=== PATIENT | male | born 1970 | race Hispanic/Latino ===

== ENCOUNTER 2020-05-11 19:00 | Observation (INO) | payer OTHER ==
[~2020-05-11] VITALS: Ht 165.1 cm; Wt 78.0 kg
--- NOTE | 2020-05-11 19:10 | NUR ---
PT AMBUALTORY TO ROOM # 14 FOR BEDSIDE TRIAGE.
--- NOTE | 2020-05-11 19:40 | NUR ---
IV INTIATED WITH LAB SPECIMENS OBTAINED. PT TOLERATED WELL. ADVISED OF WAIT TIME FOR RESULTS. VERBALIZED UNDERSTANDING. DENIES ANY NEEDS. CALL LIGHT WITHIN REACH. SPOUSE BEDSIDE.
[2020-05-11 20:09] LABS: HEMATOCRIT 45.7 % (39.0-50.0); HEMOGLOBIN 15.3 g/dl (14.0-18.0); IMMATURE GRANULOCYTES 0.3 % (0.0-5.0); MEAN CELL VOLUME 81.8 fL CALC (80.0-100.0); MEAN CORPUSCULAR HGB 27.4 pG CALC (26.0-32.0); MEAN CORPUSCULAR HGB CONC 33.5 g/dL CAL (32.0-36.0); NEUT# 6.36 thou/uL (1.82-7.42); RED BLOOD COUNT 5.59 mill/uL (4.70-6.10)
[2020-05-11 20:15] LABS: ALBUMIN 4.9 g/dL (3.2-5.0); ALKALINE PHOSPHATASE 92 u/l (38-126); AMYLASE 45 u/l (30-110); ANION GAP 13 (6-22 (CALC)); BILIRUBIN, TOTAL 0.9 mg/dL (0.0-1.4); BUN 18 mg/dL (9-20); BUN/CREATININE RATIO 25 (12-20 (CALC)); CARBON DIOXIDE 25 mmol/l (22-30); CHLORIDE 99 mmol/l (95-108); CREATININE 0.7 mg/dL (0.7-1.3); GFR > 60 ML/MIN (>=60 (CALC)); GFR FOR AFR.AMER. > 60 ML/MIN (>=60 (CALC)); LIPASE 41 u/l (23-300); POTASSIUM 3.8 mmol/l (3.5-5.1); SGOT/AST 29 u/l (17-59); SODIUM 133 mmol/l (137-146); TOTAL PROTEIN 8.6 g/dL (6.3-8.2)
--- NOTE | 2020-05-11 20:25 | NUR ---
SWABS COLLECTED PER ORDER. TOLERATED WELL. PT MEDICATED FOR PAIN PER ORDER. PT RATES PAIN LEVEL 10/10 WITH SOME ASSOCIATED NAUSEA. DR QUINTERO NOTIFIED OF PTS ELVATED BLOOD PRESSURE. ORDER RECEIVED FOR LABATELOL.
[2020-05-11 20:27] LABS: MYOGLOBIN 34 ng/mL (0 - 121)
[2020-05-11 20:39] LABS: URINE BILIRUBIN - DIPSTICK NEGATIVE (NEGATIVE); URINE BLOOD DIPSTICK NEGATIVE (NEGATIVE); URINE COLOR YELLOW; URINE GLUCOSE - DIPSTICK NEGATIVE (NEGATIVE); URINE KETONE NEGATIVE (NEGATIVE); URINE LEUK ESTERASE NEGATIVE (NEGATIVE); URINE NITRITE - DIPSTICK NEGATIVE (Negative); URINE PROTEIN - DIPSTICK 30 mg/dL (NEG-TRACE); URINE SPECIFIC GRAVITY >=1.030; URINE UROBILINOGEN - DIPSTICK 0.2 E.U./dL (0.2)
[2020-05-11 20:42] LABS: URINE RBC 0-2 RBC/hpf (0-5); URINE WBC 0-2 WBC/hpf (0-5)
--- NOTE | 2020-05-11 20:50 | NUR ---
PT MEDICATED WITH LABETAOLOL 10 MG IV INITIALLY PER DR QUINTERO ORDER PT TOLERATED MEDICAITON ADMINISTRATION WELL. CARDIAC MONTIOR SHOWING SR @ 77. PLAN OF CARE DISCUSSED WITH PT. VERBALIZED UNDERSTANDING. DENEIS ANY NEEDS. BEDSIDE.
--- NOTE | 2020-05-11 21:20 | NUR ---
PT TO RADIOLOGY VIA WC IN STABLE CONDITION.
--- NOTE | 2020-05-11 21:40 | NUR ---
PT RETURNS FROM RADIOLOGY IN STABLE CONDITION. ADVISED OF CONT WAIT TIME FOR RESULTS. VERBALZIED UNDERSTANDING. DENIES ANY NEEDS. CALL LIGHT WITHIN REACH.
--- NOTE | 2020-05-11 22:10 | NUR ---
DR QUINTERO BEDSIDE SPEAKING WITH PT REGARDING RESULTS AND PLAN FOR ADMISSION.
--- NOTE | 2020-05-11 22:40 | NUR ---
REPORT CALLED TO COLIN SOLIZ ON MEDSURGE.
--- NOTE | 2020-05-11 22:50 | NUR ---
REPORT RECEIVED FROM ED NURSE. I ASKED IF WE CAN HAVE ORDERS FOR PRN PAIN MEDICATION, ALSO CONFIRMED THE NPO DIET, BUT ASKED IF THEY WANT HIM PREPPED FOR COLONOSCOPY TONIGHT, SHE STATED NO, JUST NPO TONIGHT, NO PREP, BUT THAT SHE WOULD RECONSULT PHYSICIAN TO CONFIRM ORDERS. PT HAS NOT ARRIVED TO MED SURG FLOOR YET, PT IS STILL IN ED AT THIS TIME. ED NURSE DOES REPORT THAT SHE WILL ASK FOR PRN ORDERS ALSO FOR ELEVATED BP SINCE PT HAS BEEN ELEVATED SINCE ARRIVING TO HOSPITAL. REPORTS THAT PT IS 146/90'S AT THIS TIME AFTER RECEIING LABETALOL.
--- NOTE | 2020-05-11 22:50 | NUR ---
Admission Note Report Given to: HEYDI RN Transported by: X Wheelchair Stretcher Transported with: X Nurse Transporter X Patent IV O2 X Steward Dishwasher Location: ICU X MS2 PT TRANSPORTED VIA WC TO MS [address] TELE [address]ACE IN STABLE CONMDITION. BELONGINGS GIVEN TO PT. HEYDI SHAW BEDSIDE WITH PT.
[2020-05-11 22:56] VITALS: BP 157/90
--- NOTE | 2020-05-11 23:00 | NUR ---
PT ARRIVED TO THE MED SURG UNIT ACCOMPANIED BY ED NURSE. PT APPEARS TO BE IN STABLE CONDITION. NO S/O DISTRESS. PT SELF AMBULATED TO THE BED. V/S ASSESSED AT THIS TIME AND PT ORIENTED TO ROOM, CALL SYSTEM, LIGHTS, BED AND TV. PT HAS VERY LIMITED [place] LANGUAGE SKILLS, WILL HAVE A RADIOLOGIC TECHNOLOGY PROGRAM DIRECTOR COME ASSIST WITH PT.
--- NOTE | 2020-05-11 23:13 | NUR ---
PATHOLOGY COLLECTOR IN TO TRANSLATE FOR PT AND EXPLAIN ROOM, CALL SYSTEM, POC, LIGHTS, TV AND BED FOR PT. HE DENIES ANY QUESTIONS OR DISTRESSES AT THIS TIME. LIGHTS TURNED OFF, TV OFF, PT IS IN BED WITH CALL LIGHT AT SIDE. PT HAS BEEN ADVISED OF BEING NPO, VERBALIZED UNDERSTANDING.
[2020-05-12 04:00] VITALS: BP 132/92
--- NOTE | 2020-05-12 06:11 | NUR ---
PT AWAKE, LAB IS IN WITH PT. NO S/O DISTRESS NOTED AT THIS TIME.
[2020-05-12 06:21] LABS: HEMATOCRIT 43.1 % (39.0-50.0); HEMOGLOBIN 14.6 g/dl (14.0-18.0); IMMATURE GRANULOCYTES 0.1 % (0.0-5.0); MEAN CELL VOLUME 81.3 fL CALC (80.0-100.0); MEAN CORPUSCULAR HGB 27.5 pG CALC (26.0-32.0); MEAN CORPUSCULAR HGB CONC 33.9 g/dL CAL (32.0-36.0); NEUT# 5.01 thou/uL (1.82-7.42); RED BLOOD COUNT 5.3 mill/uL (4.70-6.10); RED CELL DISTRI WIDTH 14.1 % (11.5-15.5)
[2020-05-12 06:34] LABS: ALBUMIN 4.2 g/dL (3.2-5.0); ALKALINE PHOSPHATASE 81 u/l (38-126); ANION GAP 13 (6-22 (CALC)); BILIRUBIN, TOTAL 0.8 mg/dL (0.0-1.4); BUN 16 mg/dL (9-20); BUN/CREATININE RATIO 23 (12-20 (CALC)); CARBON DIOXIDE 24 mmol/l (22-30); CHLORIDE 102 mmol/l (95-108); CREATININE 0.7 mg/dL (0.7-1.3); GFR > 60 ML/MIN (>=60 (CALC)); GFR FOR AFR.AMER. > 60 ML/MIN (>=60 (CALC)); POTASSIUM 3.9 mmol/l (3.5-5.1); SGOT/AST 23 u/l (17-59); SODIUM 135 mmol/l (137-146); TOTAL PROTEIN 7.4 g/dL (6.3-8.2)
--- NOTE | 2020-05-12 08:00 | NUR ---
PT RESTING IN THE BED, HIS AZERBAIJANI IS LIMITED. PT AXOX3, C/O ABD PAIN. MED PER ORDER. REPOSITIOEND FOR COMOFRT, SIDE RAILS UP CALL LIGHT IN REACH BED LOCKED IN LOW POSITION, WILL CONTINUE TO MONIOTR THE PATIENT ALL SAFTY MEASURES IN PLACE. EDUCATED PT ON NPO STATUS.
--- NOTE | 2020-05-12 09:00 | NUR ---
PT RESTING COMFORTABLE NO DISTRESS NOTED AT THIS TIME.
[2020-05-12 09:59] VITALS: BP 152/82
[2020-05-12 11:12] VITALS: BP 174/99
--- NOTE | 2020-05-12 11:50 | NUR ---
B/P ELEVATED MED PER ORDER. WILL CONTINUE TO MONITOR THE PATIENT.
--- NOTE | 2020-05-12 12:18 | NUR ---
PT GIVEN GASTROGRAPHIN AND INSTRUCTED ON THE TEST.
--- NOTE | 2020-05-12 16:54 | NUR ---
EDUCATED PT IN [place] HE HAS TO DRINK THE GO LYTE FOR COLONOSCOPY IN THE AM. PATIENT STATED IN [place] HE UNDERSTOOD. C/O PAIN MED PER ORDER. WILL CONTINUE TO MONITOR THE PATIENT.
[2020-05-12 19:00] VITALS: BP 175/99
[2020-05-12 23:59] VITALS: BP 174/01; BP 174/101
[2020-05-13] VITALS (7 sets, daily range): BP systolic 128–176; BP diastolic 69–106
--- NOTE | 2020-05-13 02:25 | NUR ---
PATIENT IS ALERT AND ORIENTED. ABLE TO MAKE NEEDS KNOWN. C/O MILD ABDOMINAL PAIN TO LEFT UPPER QUADRANT. RESPIRATIONS EASY ON ROOM AIR. ON TELEMETRY HOWEVER TELEMETRY HAS BEEN WORKING INTERMITENTLY. NEW BOX TO OBTAIN FROM ED. IVF INFUSING AT 125. COMPLETED NULYTELY BEFORE MN. STOOL STILL DARK BROWN IN COLOR. PATIENT HAD ELEVATED B/P, NOTIFIED, NEW ORDER RECEIVED, HYDRALAZINE 10 MG IV GIVEN. BED IN LOW POSITION. CALL LIGHT WITHIN REACH.
[2020-05-13 05:54] LABS: HEMATOCRIT 44.2 % (39.0-50.0); HEMOGLOBIN 14.7 g/dl (14.0-18.0); IMMATURE GRANULOCYTES 0.3 % (0.0-5.0); MEAN CELL VOLUME 81.7 fL CALC (80.0-100.0); MEAN CORPUSCULAR HGB 27.2 pG CALC (26.0-32.0); MEAN CORPUSCULAR HGB CONC 33.3 g/dL CAL (32.0-36.0); NEUT# 6.7 thou/uL (1.82-7.42); RED BLOOD COUNT 5.41 mill/uL (4.70-6.10); RED CELL DISTRI WIDTH 14.2 % (11.5-15.5)
[2020-05-13 05:55] LABS: ALKALINE PHOSPHATASE 80 u/l (38-126); ANION GAP 13 (6-22 (CALC)); BILIRUBIN, TOTAL 0.8 mg/dL (0.0-1.4); BUN 15 mg/dL (9-20); BUN/CREATININE RATIO 23 (12-20 (CALC)); CARBON DIOXIDE 21 mmol/l (22-30); CHLORIDE 104 mmol/l (95-108); CREATININE 0.6 mg/dL (0.7-1.3); GFR > 60 ML/MIN (>=60 (CALC)); GFR FOR AFR.AMER. > 60 ML/MIN (>=60 (CALC)); POTASSIUM 3.7 mmol/l (3.5-5.1); SGOT/AST 24 u/l (17-59); SODIUM 133 mmol/l (137-146); TOTAL PROTEIN 7.1 g/dL (6.3-8.2)
--- NOTE | 2020-05-13 09:25 | NUR ---
PT RESTING IN THE BED HE IS ALERT, NOTED HE IS A TONG[place] SPEEKING. NPO FOR COLONOSCOPY. IV INFUSING. PT IS ABLE TO AMB ON HIS OWN TO THE BATHROOM. DENIES PAIN AT THIS TIME. PROVIDER AT THE BEDSIDE EXPLAINING IN [place] THE TEST FOR TODAY. REPOSITIONED FOR COMFORT, SIDE RAILS UP CALL LIGHT IN REACH BED LOCKED IN LOW POSITION, WILL CONTINUE TO MONIOTR THE PATIENT.
--- NOTE | 2020-05-13 09:58 | NUR ---
B/P ELEVATED 176/106 MED PER ORDER WILL CONTINUE TO MONIOTR THE PATIENT.
--- NOTE | 2020-05-13 10:32 | NUR ---
B/P 158/88
--- NOTE | 2020-05-13 11:07 | NUR ---
PT TAKEN TO ENDO.
--- NOTE | 2020-05-13 14:00 | NUR ---
PT ARRVIED FROM ENDO VIA STREACHER. AXOX3, DENIES PAIN , IV INFUSING. PT ABLE TO WALK FROM THE STREACHER TO THE BED WITH MIN ASST. VS 138/72 84 18 97%. REPOSITIONED FOR COMOFRT, SIDE RAILS UP CALL LIGHT IN REACH BED LOCKED IN LOW POSITION. ALL SAFTY MEASURES IN PLACE. WILL CONTINUE TO MONIOTR THE PATIENT.
--- NOTE | 2020-05-13 16:32 | NUR ---
PT RESTING COMOFRTABLE, IV INFUSING. TELE IN PLACE AND WORKING. NO DISRESS NOTED AT THIS TIME. WILL CONTINUE TO MONIOTR THE PATIENT.
[2020-05-14 03:12] VITALS: BP 124/73
[2020-05-14 05:33] LABS: HEMOGLOBIN 14.2 g/dl (14.0-18.0); MEAN CELL VOLUME 82.1 fL CALC (80.0-100.0); MEAN CORPUSCULAR HGB 27.1 pG CALC (26.0-32.0); RED BLOOD COUNT 5.24 mill/uL (4.70-6.10); RED CELL DISTRI WIDTH 14.4 % (11.5-15.5)
[2020-05-14 06:02] LABS: ANION GAP 13 (6-22 (CALC)); BUN 14 mg/dL (9-20); BUN/CREATININE RATIO 18 (12-20 (CALC)); CARBON DIOXIDE 19 mmol/l (22-30); CHLORIDE 106 mmol/l (95-108); CREATININE 0.8 mg/dL (0.7-1.3); GFR > 60 ML/MIN (>=60 (CALC)); GFR FOR AFR.AMER. > 60 ML/MIN (>=60 (CALC)); MAGNESIUM 1.9 mg/dL (1.6-2.3); POTASSIUM 3.4 mmol/l (3.5-5.1); SODIUM 134 mmol/l (137-146)
--- NOTE | 2020-05-14 06:33 | NUR ---
PATIENT IS ALERT AND ORIENTED X4. ABLE TO MAKE NEEDS KNOWN. [place] FIRST LANGUAGE. RESPIRATIONS EASY ON ROOM AIR. C/O ABDOMINAL BLOATING AND DISCOMFORT. PRN MORPHINE GIVEN WITH POSITIVE EFFECT. CONTINUES ON IV FLUIDS. CURRENTLY RESTING WITH EYES CLOSED. BED IN LOW POSITION. CALL LIGHT WITHIN REACH.
[2020-05-14 07:15] VITALS: BP 135/81
--- NOTE | 2020-05-14 07:15 | NUR ---
PATIENT LAYING IN BED ALERT AND ORIENTED AT THIS TIME. CALL LIGHT AND PERSONAL ITEMS WITHIN REACH. SIDERAILS ARE UP X 2. PATIENT DENEIS ANY PAIN, BOWEL SOUNDS ARE PRESENT IN ALL FOUR QUADRANTS AND PAITNET PASSING GAS AT THIS TIME. RN ASSESSEMENT DONE SEE INTERVENTIONS.
[2020-05-14 10:25] VITALS: BP 134/83
[2020-05-14] MEDS ORDERED: AMOX/K CLAV875 M1 PO (10:45)
[2020-05-14] MEDS ORDERED: SENNA-TABS8.6 MG PO (10:45)
[2020-05-14] MEDS ORDERED: MIRALAX17 GM/SCOO PO (10:46)
[2020-05-14] MEDS ORDERED: AMLODIPINE BESYL5 MG PO (10:50)
--- NOTE | 2020-05-14 11:43 | NUR ---
PATIENT D/C AT THIS TIME VERBALIZES UNDERSTANDING OF D/C INSTRUCTIONS AT THIS TIME.
--- NOTE | 2020-05-14 12:51 | NUR ---
Discharge instructions given. Patient verbalizes understanding of same. Discharged in stable condition via Wheelchair to Home with *Other. All belongings sent with pt.
== END 2020-05-14 12:53 | disposition home or self-care (01) | DRG 392 ==
LOC: ED 19:00 → ED-I 22:04 → ED 22:18 → MS2 22:19
PROVIDERS: Emergency Medicine; Nurse Practitioner; ADMIT Internal Medicine; ATTEND Internal Medicine
PROC: 0DBM8ZX Excision of Descending Colon, Via Natural or Artificial Opening Endoscopic, Diagnostic (ICD-10-PCS; principal; 2020-05-13)
PROC: 3E0H8KZ Introduction of Other Diagnostic Substance into Lower GI, Via Natural or Artificial Opening Endoscopic (ICD-10-PCS; 2020-05-13)
DX: K57.32 Diverticulitis of large intestine without perforation or abscess without bleeding (principal); I10 Essential (primary) hypertension; Z87.891 Personal history of nicotine dependence; Z20.822 Contact with and (suspected) exposure to COVID-19
CPT/HCPCS: G0378; Q9967

== ENCOUNTER 2023-03-23 15:59 | Inpatient (IN) | payer OTHER ==
[2023-03-23] VITALS (18 sets, daily range): BP systolic 152–187; BP diastolic 102–117
[~2023-03-23] VITALS: Ht 165.1 cm; Wt 79.4 kg
[~2023-03-23 15:59] MED LIST: AMLODIPINE BESYL5 MG PO; AMOX/K CLAV875 M1 PO; MIRALAX17 GM/SCOO PO; SENNA-TABS8.6 MG PO
--- NOTE | 2023-03-23 16:40 | NUR ---
PT TO ROOM3
[2023-03-23 16:46] LABS: BASO% 0.2 % (0-3); EOS% 0.1 % (0-8); HEMOGLOBIN 16.9 g/dl (14.0-18.0); IMMATURE GRANULOCYTES 0.5 % (0.0-5.0); LYMPH% 30.9 % (15-41); MEAN CELL VOLUME 84.8 fL CALC (80.0-100.0); MEAN CORPUSCULAR HGB 29.2 pG CALC (26.0-32.0); MEAN CORPUSCULAR HGB CONC 34.5 g/dL CAL (32.0-36.0); NEUT# 5.34 thou/uL (1.82-7.42); NEUT% 60.3 % (42-76); RED BLOOD COUNT 5.78 mill/uL (4.70-6.10); RED CELL DISTRI WIDTH 11.7 % (11.5-15.5)
[2023-03-23 17:00] LABS: ALKALINE PHOSPHATASE 70 u/l (38-126); ANION GAP 16 (6-22 (CALC)); BILIRUBIN, TOTAL 0.8 mg/dL (0.2-1.3); BUN 15 mg/dL (9-20); BUN/CREATININE RATIO 18 (12-20 (CALC)); CARBON DIOXIDE 31 mmol/l (22-30); CHLORIDE 93 mmol/l (95-108); CREATININE 0.8 mg/dL (0.7-1.3); GFR FOR AFR.AMER. > 60 ML/MIN (>=60 (CALC)); GFR OTHER RACES > 60 ML/MIN (>=60 (CALC)); POTASSIUM 4.4 mmol/l (3.5-5.1); SGOT/AST 39 u/l (17-59); SODIUM 135 mmol/l (137-146); TOTAL PROTEIN 8.5 g/dL (6.3-8.2)
[2023-03-23 17:01] LABS: ALBUMIN 5.3 g/dL (3.2-5.0)
--- NOTE | 2023-03-23 18:11 | NUR ---
PT RETURN FROM CT
--- NOTE | 2023-03-23 19:15 | NUR ---
PT RESTING IN BED. PT UPDATDED ON CONTINUED WAIT TIME. PT STATES UNDERSTANDING AND DENIES ANY OTHER NEEDS AT THIS TIME.
[2023-03-23 19:51] LABS: URINE BILIRUBIN - DIPSTICK Negative (NEGATIVE); URINE BLOOD DIPSTICK Negative (NEGATIVE); URINE GLUCOSE - DIPSTICK Negative (NEGATIVE); URINE KETONE 15 mg/dL (NEGATIVE); URINE LEUK ESTERASE Negative (NEGATIVE); URINE NITRITE - DIPSTICK Negative (Negative); URINE PROTEIN - DIPSTICK Negative (NEG-TRACE); URINE SPECIFIC GRAVITY <=1.005; URINE UROBILINOGEN - DIPSTICK 0.2 E.U./dL (0.2)
[2023-03-23 19:52] LABS: URINE COLOR Yellow
--- NOTE | 2023-03-23 20:23 | NUR ---
SILK SCREEN PROCESSOR IN ROOM WITH PATIENT DISCUSSING PLAN OF CARE
[2023-03-23] MEDS ORDERED: METFORMIN HCL1000 MG PO (20:41)
[2023-03-23] MEDS ORDERED: ACTOS15 MG PO (20:41)
[2023-03-23] MEDS ORDERED: LISINOPRIL20 M1 PO (20:41)
[2023-03-23] MEDS ORDERED: ZOFRAN4 MG/TAB PO (20:42)
[2023-03-23] MEDS ORDERED: HYDROCODONE/ACE1 T12 PO (20:43)
[2023-03-23] MEDS ORDERED: CIPROFLOXACN500 MG PO (20:44)
[2023-03-23] MEDS ORDERED: METRONIDAZOLE500 MG PO (20:45)
[2023-03-23] MEDS ORDERED: DICYCLOMINE HCL20 MG PO (20:45)
[2023-03-23] MEDS ORDERED: PHENERGAN25 MG RE (20:45)
--- NOTE | 2023-03-23 20:45 | NUR ---
MD I MADE AWARE OF PTS ELEVATED BP. THIS NURSE ASKS FOR MEDIACTION PRIOR TO BRING HIM UPSTAIRS.
--- NOTE | 2023-03-23 20:52 | NUR ---
REPORT CALLED AND GIVEN TO ABDULAZIZ ON [facility].
--- NOTE | 2023-03-23 21:09 | NUR ---
PT MEDICATED PER EMAR FOR ELEVATED BP.
--- NOTE | 2023-03-23 21:30 | NUR ---
PT TAKEN UP STAIRS TO MS VIA WHEELCHAIR.
--- NOTE | 2023-03-23 21:50 | NUR ---
PT ARRIVED FROM ER BP WAS 180/110 LABETALOL WAS GIVEN VIA IV BY ER NURSE.
--- NOTE | 2023-03-23 22:00 | NUR ---
RECEIVED PT FROM ER VIA WC WITH STAFF, IV SITE IS FREE FROM REDNESS OR EDEMA, BP WAS 180/110. LABETAL WAS BEING GIVEN AT THIS TIME. BY ER NURSE. HR IS REG,PULSES ARE STRONG X4,ABD IS DISTENDED AND FIRM, BREATH SOUNDS ARE CLEAR,BILATERALLY. CONTINUE TO OSBERVE AND MONITOR.
--- NOTE | 2023-03-23 23:00 | NUR ---
BP WAS RECHECKED PT HAS BEEN RESTING
[2023-03-24] VITALS (14 sets, daily range): BP systolic 125–157; BP diastolic 69–103
--- NOTE | 2023-03-24 01:15 | NUR ---
PT C/O ABD PAIN EXPLAINED TO BRANDYN SHAW INTERPRETED "FELT LIKE A POP IN MY ABD" PAIN MEDICATION GIVEN AND HAD HER EXPLAIN RE: ENEMA. STARTED THE ENEMA. WANTS TO WALK TO THE BATHROOM,
--- NOTE | 2023-03-24 01:39 | NUR ---
PT IS STANDING IN PLACE AND NOT READY TO EXPEL ANY FLUID
--- NOTE | 2023-03-24 02:10 | NUR ---
SMALL AMOUNT OF STOOL P[T FEELS BLOATED. NO MORE PAIN AT THIS TIME. REINSERTED FLUID AGAIN TO THE RECTUM, PT IS PACING BACK AND FORTH TO GET IT TO COME DOWN
--- NOTE | 2023-03-24 02:50 | NUR ---
pt got rid of some more stool,.
--- NOTE | 2023-03-24 04:00 | NUR ---
PT IS VERY TIRED, ABLE TO HAVE SOME BM AFTER ENEMA
--- NOTE | 2023-03-24 05:25 | NUR ---
pt recieved another 250cc of fluid in rectum, able to expel some formed brown stool and water
--- NOTE | 2023-03-24 06:19 | NUR ---
BP WAS CHECKED READING HIGH, 157/103 RECHECEKD PT IS NOW 143/93 RESTING IN BED
[2023-03-24 07:09] LABS: BASO% 0.4 % (0-3); IMMATURE GRANULOCYTES 0.3 % (0.0-5.0); LYMPH% 23.8 % (15-41); MEAN CELL VOLUME 86.2 fL CALC (80.0-100.0); MEAN CORPUSCULAR HGB CONC 34.8 g/dL CAL (32.0-36.0); MONO% 8.6 % (2-13); NEUT# 5.28 thou/uL (1.82-7.42); NEUT% 66.9 % (42-76); RED BLOOD COUNT 4.5 mill/uL (4.70-6.10); RED CELL DISTRI WIDTH 11.8 % (11.5-15.5)
[2023-03-24 07:10] LABS: HEMATOCRIT 38.8 % (39.0-50.0); HEMOGLOBIN 13.5 g/dl (14.0-18.0)
[2023-03-24 07:37] LABS: ANION GAP 12 (6-22 (CALC)); BUN 15 mg/dL (9-20); BUN/CREATININE RATIO 20 (12-20 (CALC)); CARBON DIOXIDE 26 mmol/l (22-30); CHLORIDE 98 mmol/l (95-108); CREATININE 0.8 mg/dL (0.7-1.3); GFR FOR AFR.AMER. > 60 ML/MIN (>=60 (CALC)); GFR OTHER RACES > 60 ML/MIN (>=60 (CALC)); POTASSIUM 4.4 mmol/l (3.5-5.1); SODIUM 132 mmol/l (137-146)
--- NOTE | 2023-03-24 08:00 | NUR ---
RECEIVED REPORT FROM NIGHTSHIFT NURSE. PT NOTED LAYING IN BED SUPINE, AT BEDSIDE. PT IS SWEDISH SPEAKING ONLY, LANGUAGE LINE USED TO TRANSLATE ID NUMBER [id number]. PT DENIES ANY PAIN AT THIS TIME. EDUCATED ON DIET, PLAN OF CARE, AND MED SCHEDULE. CALL LIGHT WITHIN REACH AND SAFETY PRECAUTIONS IN PLACE.
--- NOTE | 2023-03-24 12:31 | NUR ---
PT DOWN TO OR. REPORT GIVEN TO OR NURSES, PHARMACY NOTIFIED TO BRING ANTIBIOTIC PER EMAR TO OR. FAMILY WAITING IN .
--- NOTE | 2023-03-24 16:30 | NUR ---
PT BROUGHT UP FROM OR VIA BED. REPORT RECEIVED FROM OR NURSE STELLA. PT IS VERY DROWSY AT THIS TIME. NASAL CANNULA IN PLACE ON 2L, NG TUBE NOTED TO RT NARE, PLACED ON LOW INTERMITTEN SUCTION PER PHYSCIANS ORDER. IBARRA CATHETER NOTED WITH YELLOW URINE OUTPUT. ASSESSED PT SURGICAL INCISION TO MIDLINE, UNOBSERVABLE AT THIS TIME DUE TO DSG, DSG CDI. COLOSTOMY NOTED ON LEFT LOWER QUADRANT WITH MINOR BLOODY OUTPUT NOTED. PT FAMILY AT BEDSIDE. SCD'S APPLIED. EDUCATED PT AND FAMILY ON PLAN OF CARE, MED SCHEDULE, POST OP CARE, AND DIET. CALL LIGHT WITHIN REACH AND SAFETY PRECAUTIONS IN PLACE.
--- NOTE | 2023-03-24 20:15 | NUR ---
PT RESTING IN BED, AT BEDSIDE, NO SIGNS OF DISTRESS NOTED, RESP EVEN AND UNLABORED. PT ALERT AND ORIENTED X3, NO EDEMA. PT HAS NGT TO L NARE SUCTION TO LIS. NOTED GREEN DRAINAGE IN CANISTER. PT HAS 02 2L NC, ABD DISTENDED MIDLINE DRESSING TO ABD CDI. COLOSTOMY TO LLQ, NOTED BLOODY DRAINAGE AND AIR IN BAG, BS ACTIVE X4, IBARRA PATENT STAT LOCK IN PLACE, DRAINING TO GRAVITY. SCD'S IN PLACE. DISCUSSED POC WITH PT AND , ENCOURAGED AMBULATION. PT AGREES. INSTRUCTED PT TO SPLINT ABD, PT ASSISTED TO SITTING POSTION ON SIDE OF BED. TOLERATED WELL. DENIES ANY DIZZYNESS. PT THEN ASSISTED TO AMBULATE AROUND THE ROOM, PT TOLERATED WELL. DENIES ANY COMPLAINTS, ASSISTED BACK TO BED. CALL LIGHT IN REACH, POC ONGOING.
--- NOTE | 2023-03-25 00:02 | NUR ---
PT RESTING IN BED WITH EYES CLOSED, AT BEDSIDE, PT EASILY AROUSED TO VERBAL STIMULI. DISCUSSED MEDICATIONS DUE, PT AGREES. PT MEDICATED PER MAR. DENIES ANY NEEDS AT THIS TIME. CALL LIGHT IN REACH, POC ONGOING.
--- NOTE | 2023-03-25 02:07 | NUR ---
PT CALLED TABULAR TYPIST TO ROOM, NOTED NGT FOUND DISLODGED ON FLOOR. PT DENIES ANY DISCOMFORT OR PAIN, STATES HE WAS SLEEPING AND IT ACCIDENTLY PULLED OUT. NO SIGNS OF DISTRESS NOTED, CALL MADE TO PROVIDED, NO FURTHER INSTRUCTIONS PROVIDED. COLOSTOMY BAG EMPTIED OF 150CC BROWN LOOSE STOOL. CALL LIGHT IN REACH, POC ONGOING.
--- NOTE | 2023-03-25 04:03 | NUR ---
PT CALLED FOR ASSISTANCE, REQUESTING TO GET OUT OF BED, NO SIGNS OF DISTRESS NOTED, RESP EVEN AND UNLABORED. PT TOLERATED AMBULATING IN ROOM WELL. COLOSTOMY BAG EMPTIED OF 250 LOOSE STOOL. ASSISTED PT BACK TO BED, CALL LIGHT IN REACH, AT BEDSIDE, POC ONGOING.
[2023-03-25 06:30] LABS: BASO% 0.2 % (0-3); EOS% 0.2 % (0-8); HEMOGLOBIN 13.3 g/dl (14.0-18.0); IMMATURE GRANULOCYTES 0.2 % (0.0-5.0); LYMPH% 14.6 % (15-41); MEAN CELL VOLUME 86.1 fL CALC (80.0-100.0); MEAN CORPUSCULAR HGB 29.4 pG CALC (26.0-32.0); MEAN CORPUSCULAR HGB CONC 34.1 g/dL CAL (32.0-36.0); MONO% 5.6 % (2-13); NEUT# 7.59 thou/uL (1.82-7.42); NEUT% 79.2 % (42-76); RED BLOOD COUNT 4.53 mill/uL (4.70-6.10); RED CELL DISTRI WIDTH 12.2 % (11.5-15.5)
[2023-03-25 06:53] LABS: ALKALINE PHOSPHATASE 44 u/l (38-126); ANION GAP 9 (6-22 (CALC)); BILIRUBIN, TOTAL 0.7 mg/dL (0.2-1.3); BUN 13 mg/dL (9-20); BUN/CREATININE RATIO 18 (12-20 (CALC)); CARBON DIOXIDE 24 mmol/l (22-30); CHLORIDE 104 mmol/l (95-108); CREATININE 0.7 mg/dL (0.7-1.3); GFR FOR AFR.AMER. > 60 ML/MIN (>=60 (CALC)); GFR OTHER RACES > 60 ML/MIN (>=60 (CALC)); POTASSIUM 3.7 mmol/l (3.5-5.1); SGOT/AST 26 u/l (17-59); SODIUM 132 mmol/l (137-146)
[2023-03-25 07:01] LABS: ALBUMIN 2.9 g/dL (3.2-5.0); TOTAL PROTEIN 5.1 g/dL (6.3-8.2)
[2023-03-25 07:42] VITALS: BP 116/68
--- NOTE | 2023-03-25 08:00 | NUR ---
RESTING IN BED, ALERT. DENIES PAIN CURRENTLY. ABD CONTINUES TO BE DISTENDED. COLOSTOMY PRODUCING LIQUID BROWN STOOL. FAMILY AT BEDSIDE. NO CONCERNS EXPRESSED BY PATIENT OR FAMILY AT CURRENT TIME.
[2023-03-25 11:05] VITALS: BP 130/83
--- NOTE | 2023-03-25 12:00 | NUR ---
AMBULATING IN AVILA WITH SPOUSE. TOLERATING WELL. MEDICATED FOR C/O PAIN AT SURGICAL SITE.
[2023-03-25 15:22] VITALS: BP 138/86
--- NOTE | 2023-03-25 16:38 | NUR ---
C/O NO RELIEF FROM PERCOCET GIVEN FOR PAIN, AND "HEARTBURN". MEDICATED WITH PRN ZOFRAN AND DILAUDID. FAMILY AT BEDSIDE.
[2023-03-25 19:08] VITALS: BP 124/82
--- NOTE | 2023-03-25 20:15 | NUR ---
RECEIVED BEDSIDE REPORT FROM DAYSHIFT NURSE. PT IS IN BED SITTING UP WITH FAMILY AT BEDSIDE. PT MADE AWARE OF CHANGE OF SHIFT AND OF STAFF. PLAN OF CARE HAS BEEN STABLISHED FOR THE NIGHT. SAFETY PRECAUTIONS IN PLACE AND CALL LIGHT WITHIN REACH.
[2023-03-26] VITALS (7 sets, daily range): BP systolic 117–154; BP diastolic 73–101
--- NOTE | 2023-03-26 | NUR ---
PT IS IN BED SLEEPING NO SIGNS OF PAIN OR DISTRESS AT THIS TIME.SAFETY PRECAUTIONS IN PLACE AND CALL LIGHT WITHIN REACH.
--- NOTE | 2023-03-26 04:15 | NUR ---
PT IS IN BED AT THIS TIME. FEELING NAUSEUS. MEDICATION HAS BEEN ADMINISTERED. SAFETY PRECAUTIONS IN PLACE AND CALL LIGHT WITHIN REACH.
[2023-03-26 06:54] LABS: BASO% 0.2 % (0-3); EOS% 0.3 % (0-8); HEMATOCRIT 39.5 % (39.0-50.0); HEMOGLOBIN 13.4 g/dl (14.0-18.0); IMMATURE GRANULOCYTES 0.3 % (0.0-5.0); LYMPH% 8.4 % (15-41); MEAN CELL VOLUME 87.2 fL CALC (80.0-100.0); MEAN CORPUSCULAR HGB 29.6 pG CALC (26.0-32.0); MEAN CORPUSCULAR HGB CONC 33.9 g/dL CAL (32.0-36.0); NEUT# 12.69 thou/uL (1.82-7.42); NEUT% 83.8 % (42-76); RED BLOOD COUNT 4.53 mill/uL (4.70-6.10); RED CELL DISTRI WIDTH 12.3 % (11.5-15.5)
[2023-03-26 07:22] LABS: ANION GAP 12 (6-22 (CALC)); BUN 13 mg/dL (9-20); BUN/CREATININE RATIO 16 (12-20 (CALC)); CARBON DIOXIDE 25 mmol/l (22-30); CHLORIDE 103 mmol/l (95-108); CREATININE 0.8 mg/dL (0.7-1.3); GFR FOR AFR.AMER. > 60 ML/MIN (>=60 (CALC)); GFR OTHER RACES > 60 ML/MIN (>=60 (CALC)); POTASSIUM 3.4 mmol/l (3.5-5.1); SODIUM 136 mmol/l (137-146)
--- NOTE | 2023-03-26 08:00 | NUR ---
PT IN BED WITH HOB UP. PT HAS C/O ABD PAIN AND NAUSEA/ VOMITING. DR. CHAVEZ HAS BEEN NOTIFIED BY PHOTOGRAPHIC LITHOGRAPHER NURSE AND ORDERS RECEIVED. PT LUNGS CLEAR. ABD IS DISTNEDED AND FIRM, COLOSTOMY BAG INTACT WITH BROWN STOOL NOTED. PT IV SITE TO LFA CLEAN AND INTACT AND D5 W/ K INFUSING AT 80 ML/HR. IBARRA CAHT INTACT DRAINING CLOUDY, YELLOW BLOOD TINGED URINE WITH SEDIMENT IN BAG. PT IS AT BEDSIDE. PT HAS CALL LIGHT WITHIN REACH AND SAFETY MEASURES IN PLACE AT THIS TIME. PT HAS CALL LIGHT WITHIN REACH AND SAFETY MEASURES IN PLACE AT THIS TIME.
--- NOTE | 2023-03-26 08:30 | NUR ---
ORDER FOR NG PLACEMENT RECEIVED BY SUPERINTENDENT DISTRIBUTION NURSE AND ORDER ENTERED. NG TUB PLACED WITH 1800 ML OF DARK , GREEN GI CONTENT OUT IMMEDIATELY PRIOR TO ADDING SUCTION. PT PLACED IN SUCTION PER PROTOCOL AND CONTINUES TO DRAIN DARK GREEN CONTENT. PT TOLERATED PROCDURE WELL. ORDER FOR X RAY ENTERED TO CHECK FOR PLACEMENT. PT IS NPO AT THIS TIME AND ORDER ENTERED. PT HAS CALL [facility] REACH AND SAFETY MEASURES IN PLACE.
--- NOTE | 2023-03-26 12:00 | NUR ---
PT IN BED RESTING WITH HOB UP, AT [facility]. PT STATES HE HAS NO C/O PAIN OR NAUSEA AT THIS TIME. NG TUBE CONTINUES TO DRAIN LARGE AMOUNTS OF DARK GREEN GI CONTENT. PT HAS CALL LIGHT WITHIN REACH AND SAFETY MEASURES IN PLACE AT THIS TIME.
--- NOTE | 2023-03-26 13:20 | NUR ---
S: BAYLEEGEOFFREY TORRES is a 52 M who presents with large bowel obstruction. He has a history of colitis and diverticulitis . All medications in patient's chart were reviewed. O: VS: BP:141/101 mmHg, P:109 bpm, RR:18 bpm, T: 100.5 F W: 74 kg, HT: 65in, Scr: 0.8 mg/dl, CrCl: 102.8 ml/min A: Preliminary blood culture shows no growth after 48 hours incubation. P: Patient is on Zosyn 3.375 gm IV Q6H Vancomycin ordered for pharmacy to dose. Start Vancomycin 1.25 gm IV Q12H. Vancomycin trough is drawn before the 4th dose on 03/28/23 @0100. Vancomycin goal trough is between 10-15 mcg/ml. Pharmacy will follow and or advise on antibiotics use as needed.
--- NOTE | 2023-03-26 21:00 | NUR ---
ASSESSMENT IS COMPLETED. IV SITE IS FREE FROM REDNESS OR EDEMA. HR IS REG,PULSES ARE STRONG X4,ABD IS DISTENDED AND SOFT WITH HYPO BS, NGT IN PLACEC LARGE AMOUNT OF DARK GREEN FLUID, IBARRA DRAINING YELLOW URINE. COLOSTOMY HAS SOME STOOL DARK. DRESSING ON ABD IS CDI. USED THE LANGUAGE LINE ON THE PHONE TO SPEAK WITH PT AND FAMILY VERBALIZED UNDERSTANDING.
[2023-03-26 23:23] LABS: URINE BILIRUBIN - DIPSTICK Negative (NEGATIVE); URINE BLOOD DIPSTICK Moderate (NEGATIVE); URINE GLUCOSE - DIPSTICK Negative (NEGATIVE); URINE KETONE 15 mg/dL (NEGATIVE); URINE NITRITE - DIPSTICK Negative (Negative); URINE PROTEIN - DIPSTICK >=300 mg/dL (NEG-TRACE); URINE UROBILINOGEN - DIPSTICK 0.2 E.U./dL (0.2)
[2023-03-26 23:37] LABS: URINE COLOR Yellow
[2023-03-26 23:38] LABS: URINE LEUK ESTERASE Negative (NEGATIVE)
[2023-03-26 23:39] LABS: URINE BACTERIA MODERATE hpf; URINE EPITHELIAL CELLS FEW EPI/hpf (0-FEW); URINE MUCUS FEW hpf (NONE-FEW); URINE YEAST MODERATE hpf
[2023-03-27] VITALS (11 sets, daily range): BP systolic 122–185; BP diastolic 81–105
--- NOTE | 2023-03-27 | NUR ---
PT IS RESTING IN BED WITH NO DISTRESS NOTED. IV SITE IS FREE FROM REDNESS OR EDMEA. FAMILY WENT HOME.
--- NOTE | 2023-03-27 04:15 | NUR ---
PT IS RESTING NGT IN PLACE. IBARRA DRAINING YELLOW URINE,, COLOSTOMY BAG IS HAVING SOME STOOL. IV SITE IS FREE FROM REDNESS OR EDEMA.
[2023-03-27 07:32] LABS: BASO% 0.2 % (0-3); EOS% 2.1 % (0-8); HEMATOCRIT 35.9 % (39.0-50.0); HEMOGLOBIN 12.5 g/dl (14.0-18.0); IMMATURE GRANULOCYTES 0.3 % (0.0-5.0); LYMPH% 8.8 % (15-41); MEAN CELL VOLUME 87.6 fL CALC (80.0-100.0); MEAN CORPUSCULAR HGB 30.5 pG CALC (26.0-32.0); MEAN CORPUSCULAR HGB CONC 34.8 g/dL CAL (32.0-36.0); MONO% 6.6 % (2-13); NEUT# 11.85 thou/uL (1.82-7.42); RED BLOOD COUNT 4.1 mill/uL (4.70-6.10); RED CELL DISTRI WIDTH 12.3 % (11.5-15.5)
--- NOTE | 2023-03-27 08:00 | NUR ---
PT RESTING IN BED WITH FAMILY MEMBER AT BEDSIDE. ASSESSMENT COMPLETED. NG TUBE IN PLACE PER MD ORDER. DARK BROWN OUTPUT NOTED. IBARRA IN PLACE DRAINING URINE VIA GRAVITY. IV INTACT INFUSING IVF PER EMAR. DRESSING TO MIDLINE CDI. LEFT COLOSTOMY IN PLACE 300CC OUTPUT DARK GREEN COLORED. EDUCATED PT COLOSTOMY AND FOLEUY/ NG TUBE. PT INIDCATED UNDERSTANING. VOICED PAIN 10/10. MEDICATED PER EMAR. BOWEL SOUNDS ACTIVE. ABD DISTENDED/ FIRM. FALL/SAFTEY PRECAUTION IN PLACE. CALL OLIGHT WITHIN REACH
[2023-03-27 08:35] LABS: ALBUMIN 2.9 g/dL (3.2-5.0); BILIRUBIN, TOTAL 0.8 mg/dL (0.2-1.3); POTASSIUM 2.9 mmol/l (3.5-5.1); TOTAL PROTEIN 5.2 g/dL (6.3-8.2)
[2023-03-27 08:37] LABS: CREATININE 2.7 mg/dL (0.7-1.3); MAGNESIUM 2.6 mg/dL (1.6-2.3)
--- NOTE | 2023-03-27 11:43 | NUR ---
called dr nogueira office and gave information on the pt. stated she will let him know.
--- NOTE | 2023-03-27 12:00 | NUR ---
PT NEW IV STARTED FOR ABX AND NS BOLUS PT INDICATED UNDERSTANDING. Fall/saftey precaution in place. call light within reach.
[2023-03-27 15:28] LABS: ALBUMIN 2.7 g/dL (3.2-5.0); BILIRUBIN, TOTAL 0.7 mg/dL (0.2-1.3); CREATININE 3.2 mg/dL (0.7-1.3); POTASSIUM 2.9 mmol/l (3.5-5.1)
--- NOTE | 2023-03-27 16:39 | NUR ---
PT MEDICATED FOR PAIN SEE EMAR STATES DILAUDID HELPS WITH PAIN. IVF INFUSING PER EMAR. NG TUBE IN PLACE SUCTIONING AT LOW INTERMITENT. CONTENTS ARE DARK BROWN/ WATERY STATES NO NEEDS AT THIS TIME. FALL/SAFTETY PRECAUTION IN PLACE CALL LIGHT WITHIN REACH. IBARRA IN PLACE DRAINING URINE VIA GRAVITY. FALL/SAFTEY PRECAUTIN IN PLACE CALL LIGHT WITHIN REACH
--- NOTE | 2023-03-27 20:00 | NUR ---
RECEIVED REPORT FROM NURSE NAJMA, PATIENT IN BED, SIGNIFICANT OTHER IN ROOM, ANGEL HAS NGT ON RT NARE DRAINING DARK GREENISH LIQUID ON LIS, PATIENT IV ON LAC G 20 D5 1/2NS @ 150, PATINET ON TELEMETRY, LUNG SOUNDS CLEAR, MIDLINE INCISION DRESSING CDI, COLOSTOMY EMPTIED LIQUID STOOL, PATIENT IBARRA DRAINING YELLOW COLORED URINE, AND ON SCD, ANGEL PROVIDED WITH INCENTIVE SPIROMETER, INSPIRATORY VOLUME AT 1000, PATIENT C/O PAIN MEDICATED, CALL LIGHT IN REACH.
[2023-03-28] VITALS (8 sets, daily range): BP systolic 142–172; BP diastolic 87–99
--- NOTE | 2023-03-28 00:26 | NUR ---
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
--- NOTE | 2023-03-28 00:43 | NUR ---
PATIENT COLOSTOMY BAB LEAKING, NEW COLOSTOMY BAG APPLIED, PATIENT NOT IN DISTRESS, STATED PAIN RELIEF, IV LABETALOL GIVEN WILL RECHECK BP.
--- NOTE | 2023-03-28 04:49 | NUR ---
LEONORNET RESTING IN BED EYES CLOSED, BREATHING EVEN UNLABORED, PATIENT DENIES PAIN, IBARRA DRAINED AND NGT OUTPUT RECORDED, CALL LIGHT IN REACH.
[2023-03-28 05:19] LABS: BASO% 0.4 % (0-3); EOS% 1.6 % (0-8); HEMATOCRIT 32.9 % (39.0-50.0); HEMOGLOBIN 11.1 g/dl (14.0-18.0); IMMATURE GRANULOCYTES 0.2 % (0.0-5.0); MEAN CORPUSCULAR HGB 29.7 pG CALC (26.0-32.0); MEAN CORPUSCULAR HGB CONC 33.7 g/dL CAL (32.0-36.0); MONO% 6.2 % (2-13); NEUT# 10.17 thou/uL (1.82-7.42); NEUT% 80.6 % (42-76); RED BLOOD COUNT 3.74 mill/uL (4.70-6.10); RED CELL DISTRI WIDTH 12.6 % (11.5-15.5)
[2023-03-28 05:42] LABS: ALBUMIN 2.7 g/dL (3.2-5.0); BILIRUBIN, TOTAL 0.6 mg/dL (0.2-1.3); CREATININE 4.1 mg/dL (0.7-1.3); MAGNESIUM 2.7 mg/dL (1.6-2.3); POTASSIUM 2.8 mmol/l (3.5-5.1)
--- NOTE | 2023-03-28 07:00 | NUR ---
REPORT RECIEVED FROM PATTERN CLERK RN. PT RESTING WITH AT BEDSIDE. NG TUBE IN PLACE AT LOW INTERMITTENT SUCTIONING. IBARRA IN PLACE. PT RESPIRATION SARE EVEN AN DUNLABORED. NO DISTRESS NOTED. IVF INFUSING PER EMAR. FALL/SAFTEY PRECAUTION IN PLACE. CALL LIGHT WITHIN REACH
--- NOTE | 2023-03-28 09:39 | NUR ---
ASSESSMENT COMPLETED. PT RESTING IN BED WITH FAMILY MEMBER AT BEDSIDE. PT A&OX3. IVF INFUSING PER EMAR. EDUCATED PT ON INSENTIVE SPIROMETER AND NG TUBE. PT AND FAMILY MEMBER INDICATED UNDERSTANDING. IBARRA IN PLACE DRAINING URINE VIA GRAVITY. NG TUBE IN PLACE AT LOW INTERMITTENT SUCTIONING. MOUTHCARE PROVIDED NOTIFIED JAVA CORE DEVELOPER FOR ORDERS FOR THROAT IRRITATION. SCDS IN ROOM. PT STATES DOES NOT WANT THEM ON AT THIS TIME. EDUCATED PT ON SCDS. IV PATENT/FLSUHED. 22G RFA AND 20LAC. UPDATED PT IN TODAYS [place] FAMILY PT INDICATED UNDERSTANDING. STATES NO PAIN AT THIS TIME. DARN GREEN OUTPUT 250CC FROM COLOSTOMY BAG. FALL/SAFTEY PRECAUTION IN PLACE. CALL LIGHT WITHIN REACH
--- NOTE | 2023-03-28 11:35 | NUR ---
AT BEDSIDE WITH ALSO MARLON FOR DISCUSSNG PLAN OF CARE
--- NOTE | 2023-03-28 12:04 | NUR ---
PT RESTING IN BED NG TUBE IN PLACE ON INTERMITTENT LOW SUCTIONING. COLOSTOMY BAG IN PLACE WITH DARK GREEN OUTPUT. IVF INFUSING PER EMAR, PT STATES. THROAT SPRAY HELPED WITH THROAT IRRITATION. STATES NO PAIN. FALL/SAFTEY PRECAUTION IN PLACE.CALL LIGHT WITHIN REACH. GLUCOSE: 206 COVERED PER SLIDING SCALE. STATES NO OTHER CONCERNS AT THIS TIME.
--- NOTE | 2023-03-28 13:00 | NUR ---
MEDIA RECONCILIATION SPECIALIST IN ROOM FOR BLOOD DRAW
[2023-03-28 13:30] LABS: CREATININE 4.9 mg/dL (0.7-1.3)
--- NOTE | 2023-03-28 13:55 | NUR ---
MD RM AT BEDSIDE. NG TUBE REMOVED BY PT TOLERATED WELL. INSTRUCTINS FOR ICE CHIPS AND LITTLE WATER ALLOWED. FALL/SAFTEY PRECAUTION IN PLACE.CALL LIGHT WITHIN REACH
--- NOTE | 2023-03-28 16:09 | NUR ---
ER FOUND GOLD PINKY RING PERSONALLY GIVEN TO PT BY ER NURSE EMANUEL SHAW
--- NOTE | 2023-03-28 17:39 | NUR ---
PT RESTING IN BED. [id number] EVEN AND UNLABORED. STATES NO NEEDS AT THIS TIME. FALL/SAFTEY PRECAUTION IN PLACE. CALL LIGHT WITHIN REACH
--- NOTE | 2023-03-28 20:00 | NUR ---
RECEIVED REPORT FROM NURSE NAJMA, PATIENT SEEN WALKING IN HALLWAY WITH , PATIENT IV ON 22 RFA SALINE LOCK PATENT FLUSHES WELL, AND 20 ON LAC G 20 D51/2 NS WITH 20 MEQ POTASSIUM INFUSING WELL,COLOSTOMY BAG DRAINED 100CC OF DARK GREEN FLUID, PATINET IBARRA DRAINING YELLOW COLORED URINE SEDIMENTS NOTED, NOT IN DISTRESS, DRESSING ABDOMEN CDI.
[2023-03-29] VITALS (7 sets, daily range): BP systolic 140–155; BP diastolic 77–86
--- NOTE | 2023-03-29 00:17 | NUR ---
PATINET RESTING IN BED NOT IN DISTRESS, BREATHING EVEM UNLABORED, PATINET DENIES PAIN, CALL LIGHT IN REACH.
--- NOTE | 2023-03-29 03:40 | NUR ---
PATINET RESTING IN BED,DENIES PAIN BREATHING EVEN UNLABORED CALL LIGHT IN REACH.
[2023-03-29 07:10] LABS: BASO% 0.7 % (0-3); EOS% 3.3 % (0-8); HEMATOCRIT 30.9 % (39.0-50.0); HEMOGLOBIN 10.4 g/dl (14.0-18.0); IMMATURE GRANULOCYTES 0.3 % (0.0-5.0); LYMPH% 18.3 % (15-41); MEAN CELL VOLUME 88.8 fL CALC (80.0-100.0); MEAN CORPUSCULAR HGB 29.9 pG CALC (26.0-32.0); MEAN CORPUSCULAR HGB CONC 33.7 g/dL CAL (32.0-36.0); MONO% 7.4 % (2-13); NEUT# 5.27 thou/uL (1.82-7.42); RED BLOOD COUNT 3.48 mill/uL (4.70-6.10); RED CELL DISTRI WIDTH 12.6 % (11.5-15.5)
--- NOTE | 2023-03-29 07:21 | NUR ---
PT SLEEPING AT THIS TIME, RESOIRATIONS ARE EVEN AND UNLABORED.
[2023-03-29 07:47] LABS: ALBUMIN 2.7 g/dL (3.2-5.0); BILIRUBIN, TOTAL 0.5 mg/dL (0.2-1.3); CREATININE 4.4 mg/dL (0.7-1.3); CREATININE 4.5 mg/dL (0.7-1.3); MAGNESIUM 2.7 mg/dL (1.6-2.3); POTASSIUM 3.1 mmol/l (3.5-5.1)
--- NOTE | 2023-03-29 10:21 | NUR ---
PT UP WALKING HALLS.
--- NOTE | 2023-03-29 10:49 | NUR ---
DR CHAVEZ BEDSIDE DISCUSSING PLAN OF CARE WITH PT.
--- NOTE | 2023-03-29 16:40 | NUR ---
pt colostomy bag leaking on bottom, changes dressing and bag. pt tolerated without any coplaints of pain.
--- NOTE | 2023-03-29 21:07 | NUR ---
PT SITTING ON SIDE OF BED, NO SIGNS OF DISTRESS NOTED, RESP EVEN AND UNLABORED. PT ALERT AND ORIENTED X3, DISCUSSED POC, VERBALIZED UNDERSTANDING. MIDLINE DRESSING TO ABD CDI, COLOSTOMY BAG EMPTIED OF 200CC OF BROWN/YELLOW LIQUID STOOL. IBARRA CATHETER PATENT, STAT LOCK IN PLACE, DRAINING TO GRAVITY. ASSESSMENT REVIEW COMPLETED. CALL LIGHT IN REACH, POC ONGOING.
[2023-03-30] VITALS (9 sets, daily range): BP systolic 149–180; BP diastolic 77–92
--- NOTE | 2023-03-30 00:30 | NUR ---
PT RESTING IN BED WITH EYES CLOSED, EASILY AROUSED TO VERBAL STIMULI, NO SIGNS OF DISTRESS NOTED, RESP EVEN AND UNLABORED. PT DENIES ANY NEEDS OR COMPLAINTS AT THIS TIME. CALL LIGHT IN REACH, POC ONGOING.
--- NOTE | 2023-03-30 04:15 | NUR ---
PT RESTING IN BED, NO SIGNS OF DISTRESS NOTED, RESP EVEN AND UNLABORED. COLOSTOMY BAG EMPTIED OF 100CC OF LIQUID STOOL. CALL LIGHT IN REACH,CONTINUE TO MONITOR.
[2023-03-30 08:28] LABS: ALBUMIN 2.7 g/dL (3.2-5.0); CREATININE 3.9 mg/dL (0.7-1.3); MAGNESIUM 2.5 mg/dL (1.6-2.3); POTASSIUM 3.2 mmol/l (3.5-5.1)
--- NOTE | 2023-03-30 09:00 | NUR ---
ASSESSMENT IS COMPLETED: IV SITE IS FREE FROM REDNESS OR EDEMA. HR IS REG,PULSES ARE STRONG X4,ABD IS SOFT WITH ACTIVE BS. COLOSTOMY BAG IS GETTING RID OF DARK STOOL, IBARRA DRAINING YELLOW URINE. TELE MONITOR IN PLACE. IV SITE STOPPED WORKING HAD TO CHANGE IT. NOW IN RFA WITH #20.
--- NOTE | 2023-03-30 10:29 | NUR ---
IBARRA DISCONTINUED CATHETER INTACT. IVF DISCONTINUED AND IV SITE FLUSHED. PT TOLERATED WELL.
--- NOTE | 2023-03-30 12:00 | NUR ---
PT IS RELAXING IN THE CHAIR, NO DISTRESS NOTED. HAS BEEN WALKING AROUND THE ROOM.,
--- NOTE | 2023-03-30 16:00 | NUR ---
PT HAS BEEN AMBULATING IN THE ROOM, IV SITE IS FREE FROM REDNESS OR EDEMA
--- NOTE | 2023-03-30 17:32 | NUR ---
BP WENT BACK DOWN BEFORE MED COULD BE GIVEN , IT IS 149/81 NOW. SPOUSE WAS ASKING IF PT RECEIVED MEDICATION THIS AM,INFORMED YES
--- NOTE | 2023-03-30 20:00 | NUR ---
RECEIEVED BEDSIDE REPORT FROM DAY SHIFT NURSE. PT IS IN BED SITTING UP. WITH FAMILY AT BEDSIDE. MADE PT AWARE OF PLANOF CARE. NO PAIN AT THIS TIME. SAFETY PRECAUTIONS IN N P[LACE AND CALL LIGHT WITHIN REACH.
[2023-03-31 00:06] VITALS: BP 162/92
[2023-03-31 04:57] LABS: ALBUMIN 2.9 g/dL (3.2-5.0); CREATININE 3.3 mg/dL (0.7-1.3); MAGNESIUM 2.2 mg/dL (1.6-2.3); POTASSIUM 3.4 mmol/l (3.5-5.1)
[2023-03-31 05:13] VITALS: BP 149/89
[2023-03-31 08:04] VITALS: BP 174/94
[2023-03-31 09:11] VITALS: BP 157/86
--- NOTE | 2023-03-31 09:15 | NUR ---
ASSESSMENT IS COMPLETED: IV SITE IS FREE FROM REDNESS OR EDEMA. TELE MONITOR IN PLACE. HR IS REG,PULSES ARE STRONG X4,ABD IS SOFT WITH ACTIVE BS. COLOSTOMY IN PLACE GOOD OUTPUT, SOFT BROWN STOOL, DRESSING ON ABD IS CDI, FAMILY IN THE ROOM. CONTINUE TO OSBERVE AND MONITOR.
--- NOTE | 2023-03-31 09:50 | NUR ---
DR CHAVEZ IN TO VISIT WITH PT , EXPLAINED WITH TREE SURGEON HELPER FROM ER RE: DISCHARGE AND WHAT TO EXPECT AT HOME.
[2023-03-31] MEDS ORDERED: PERCOCET 5/325M1 TAB PO (10:26)
--- NOTE | 2023-03-31 10:50 | NUR ---
COLOSTOMY BAG CHANGED, STOMA IS CLEAN AND RED/PINK, STOOL PRESENT SMALL AMOUNT OF BLOOD NOTED. CLEANED AND REMOVED EXCESS GLUE. REPLACED WITH NEW COLOSTOMY BAG, USED THE STOMAH ADHESIVE AND SECURED WITH TAPE, YANIQUE ARE CDI NO BRUSING OR REDNESS RECOVERED WITH NON ADHERENT DRESSING TO KEEP CLEAN, PT TOLERATED WELL, FAMILY IN THE ROOM. INTERPRETING FOR THE TO INFORM OF PROCEDURE
--- NOTE | 2023-03-31 12:00 | NUR ---
PT IS AMBULATING IN THE ROOM. NO DISTRESS NOTED. IV SITE IS FREE FROM REDNESS OR EDEMA. CONTINUE TO OBSERVE AND MONITOR.
--- NOTE | 2023-03-31 15:00 | NUR ---
PT'S IV SITE TAKEN OUT FOR DISCHARGE. TELE TAKEN OFF HAD CHELI FROM ER TO INTERPRET FOR THE DISCHARGE. VERBALIZED UNDERSTANDING. INQUIRED ABOUT WHEN HE GETS RELEASED TO GO BACK TO WORK, DR CHAVEZ WILL ADVISE. HOME HEALTH WILL BE FOLLOWING, INQUIRED IF THEY WOULD KNOW [facility].
--- NOTE | 2023-03-31 15:08 | NUR ---
IV SITE TAKEN OUT AND CATHETER INTACT. TELE MONITOR OFF PT ER NOTIFIED.
--- NOTE | 2023-03-31 15:30 | NUR ---
DISCHARGE INSTRUCTIONS GIVEN
== END 2023-03-31 15:50 | DRG 329 ==
LOC: ED 15:59 → ED-I 19:50 → ED 20:19 → MS2 20:20
PROVIDERS: Internal Medicine Nephrology; Nurse Practitioner; Nurse Practitioner Family; ADMIT Surgery; ATTEND Surgery
PROC: 0DBN0ZZ Excision of Sigmoid Colon, Open Approach (ICD-10-PCS; principal; 2023-03-24)
PROC: 0D1M0Z4 Bypass Descending Colon to Cutaneous, Open Approach (ICD-10-PCS; 2023-03-24)
DX: K56.691 Other complete intestinal obstruction (principal); N17.0 Acute kidney failure with tubular necrosis; K91.89 Other postprocedural complications and disorders of digestive system; K57.20 Diverticulitis of large intestine with perforation and abscess without bleeding; K56.7 Ileus, unspecified; I95.9 Hypotension, unspecified; E86.9 Volume depletion, unspecified; E87.6 Hypokalemia; D64.9 Anemia, unspecified; E83.51 Hypocalcemia; R80.9 Proteinuria, unspecified; R50.82 Postprocedural fever; E11.9 Type 2 diabetes mellitus without complications; I10 Essential (primary) hypertension; Z79.84 Long term (current) use of oral hypoglycemic drugs; Z87.891 Personal history of nicotine dependence; Z20.822 Contact with and (suspected) exposure to COVID-19
CPT/HCPCS: J0131; J0692; J1650; J3370; Q9967; S0164